=== PATIENT | male | born 1980 | race Caucasian/White ===

== ENCOUNTER → 2019-11-24 10:36 | Outpatient (CLI) | payer OTHER, SELFPAY ==
--- NOTE | 2019-11-24 | DI.RAD.S_ITS ---
PROCEDURE: XR ANKLE LT MIN 3V INDICATIONS: Left ankle sprain, pain in henry, medial pain TECHNIQUE: 3 views of the ankle were acquired. COMPARISON: None. FINDINGS: Bones: No fractures or dislocations. Ankle mortise is normally aligned. No suspicious bony lesions. Soft tissues: No tibiotalar joint effusion. Achilles tendon appears normal. IMPRESSION: Source of left ankle pain is not seen. Dictated by: Maxwell Meyer M.D. on 11/24/2019 at 11:23 Approved by: Maxwell Meyer M.D. on 11/24/2019 at 11:24
== END ==
PROVIDERS: Family Provider Family Medicine; PCP Family Medicine; Referring Provider Family Medicine; Visit Provider Family Medicine
DX: S93.402A Sprain of unspecified ligament of left ankle, initial encounter (principal); M25.572 Pain in left ankle and joints of left foot; X58.XXXA Exposure to other specified factors, initial encounter
CPT/HCPCS: 73610